=== PATIENT | female | born 1985 | race American Indian/Alaskan Native ===

== ENCOUNTER 2016-11-14 17:07 | Emergency (ER) | payer OTHER ==
[2016-11-14 17:58] VITALS: BP 129/71
[2016-11-14 18:30] LABS: Hematocrit 38.7 % (30.3-42.9); Mean Corpuscular HGB Conc 34 % (30-34); Mean Corpuscular Hemoglobin 29 pg (28-32); Mean Corpuscular Volume 86 fl (79-97); Platelet Count 254 K/mm3 (140-440); Red Blood Count 4.48 M/mm3 (3.65-5.03); White Blood Count 10.9 K/mm3 (4.5-11.0)
[2016-11-14 18:43] LABS: INR 0.95 (0.87-1.13)
[2016-11-14 18:44] LABS: Partial Thromboplastin Time 29.8 Sec. (24.2-36.6)
[2016-11-14 18:48] LABS: Anion Gap 21 mmol/L; Blood Urea Nitrogen 11 mg/dL (7-17); Calcium 9.3 mg/dL (8.4-10.2); Carbon Dioxide 23 mmol/L (22-30); Chloride 98.6 mmol/L (98-107); Glucose 78 mg/dL (65-100); Potassium 4.5 mmol/L (3.6-5.0); Sodium 138 mmol/L (137-145)
[2016-11-14 22:10] LABS: Bacteria,Urine 1+ /HPF (Negative); Bilirubin,Urine NEG (Negative); Blood,Urine NEG (Negative); Ketones,Urine 20 mg/dL (Negative); Leukocyte Esterase,Urine SM (Negative); Mucus,Urine 3+ /HPF; Nitrite,Urine NEG (Negative); Urobilinogen,Urine < 2.0 mg/dL (<2.0)
--- NOTE | 2016-11-15 00:10 | Ultrasound Report ---
FINAL REPORT EXAM: US OB \T\lt; = 14 WEEKS FETUS HISTORY: PREG / LOSSING WGT COMPARISON: None available. TECHNIQUE: Several real-time grayscale and color Doppler images were obtained. Transabdominal and transvaginal exam. FINDINGS: Uterus measures 11.9 x 7.7 x 8.5 centimeters. Single live IUP. Estimated gestational age 10 weeks 5 days. Estimated delivery date June 07, 2017. heart rate 171 beats per minute. yolk sac is present. position variable. Small subchorionic hemorrhage measuring 1.1 x 1.6 x 1.6 centimeters. The right ovary measures 3.7 x 2.4 x 2.5 centimeters. Left ovary measures 3.0 x 1.9 x 2.0 centimeters. There is vascular flow to the ovaries. Within the right ovary, there is a 1.7 centimeter hypoechoic avascular structure which may reflect corpus luteum. IMPRESSION: Single live IUP. Estimated gestational age 10 weeks 5 days. Estimated delivery date June 07, 2017. Small subchorionic hemorrhage. 1.7 centimeter hypoechoic avascular structure in the right ovary which may reflect corpus luteum. No adnexal masses.
== END 2016-11-14 23:50 | disposition left against medical advice (07) ==
LOC: EEVIPCON 17:07 → ED 17:07
DX: R11.10 Vomiting, unspecified (principal); Z53.21 Procedure and treatment not carried out due to patient leaving prior to being seen by health care provider
CPT/HCPCS: 36415; 76801; 76817; 80048; 81001; 84702; 85027; 85610; 85730